=== PATIENT | female | born 1980 | race Caucasian/White ===

== ENCOUNTER 2018-07-09 14:50 | Outpatient (REF) | payer MEDICAID, SELFPAY ==
[2018-07-09 22:12] LABS: HCT 45.9 % (36.0-46.0); HGB 14.9 g/dL (12.0-15.5); Mean Corp. HGB Concentration 32.5 g/dL (32.0-36.0); Mean Corpuscular Hemoglobin 29.3 pg (27.0-33.0); Mean Corpuscular Volume 90.2 fL (80-95); Mean Platelet Volume 10.5 fL (8.0-11.0); Platelet Count 270 x1000/uL (130-400); RBC 5.09 m/cumm (4.00-5.20); RBC Distribution Width 13.8 % (11.7-14.6); White Blood Cell Count 11.39 k/cumm (4.4-10.8)
[2018-07-09 22:22] LABS: ALT 47 U/L (12-78); AST 30 U/L (15-37); Albumin 3.2 g/dL (3.4-5.0); Alkaline Phosphatase 76 U/L (46-116); Anion Gap 7.4 mmol/L (3-11); BUN 11 mg/dL (7-18); Bilirubin, Total 0.2 mg/dL (0.2-1.0); CO2 30.6 mmol/L (21.0-32.0); CREATININE 0.79 mg/dL (0.55-1.02); Calcium 9.1 mg/dL (8.5-10.1); Chloride 104 mmol/L (98-107); Ferritin 104 ng/mL (8-388); Glucose 107 mg/dL (70-100); Magnesium 1.9 mg/dL (1.8-2.4); Potassium 3.9 mmol/L (3.5-5.1); Sodium 142 mmol/L (136-145); TSH (W/Ref FT4) 1.96 uIU/mL (0.358-3.74); Total Protein 6.8 g/dL (6.4-8.2)
[2018-07-12 08:54] LABS: Vitamin D 25 Total 20.7 ng/ml (30-100)
== END 2018-07-09 15:10 ==
LOC: NCHCN 14:50
PROVIDERS: Visit Provider Family Medicine
DX: R14.0 Abdominal distension (gaseous) (principal); G25.81 Restless legs syndrome; R60.9 Edema, unspecified; E55.9 Vitamin D deficiency, unspecified
CPT/HCPCS: 80053; 82306; 85027; 82728; 83735; 84443

== ENCOUNTER 2020-06-22 16:14 | Outpatient (REF) | payer MEDICAID, SELFPAY ==
[2020-06-27 00:51] LABS: SARS-CoV-2 RNA Undetected (Undetected); SARS-CoV-2 Specimen Source Nasal
== END 2020-06-22 16:34 ==
LOC: NCHCN 16:14
PROVIDERS: Visit Provider Family Medicine
DX: R50.9 Fever, unspecified (principal)
CPT/HCPCS: U0003

== ENCOUNTER 2020-08-01 16:37 | Emergency (ER) | payer MEDICAID, SELFPAY ==
[2020-08-01 16:42] VITALS: BP 134/76; PULSE 112; RESP 18; TEMP 36.6; O2SAT 99
--- NOTE | 2020-08-01 16:56 | ED.GENADUL_ITS ---
Discharge Plan Disposition Patient Disposition: HOME Condition: Stable Discharge Details Clinical Impression: Rash, Right rib fracture Primary Care Provider: Danielle Choe ED Provider: Lizzy Bernal Home Meds and New Rx's Prescriptions: New ibuprofen 800 mg tablet 800 mg PO Q8H PRN (Reason: pain) Qty: 20 RF: 0 Continued omeprazole 20 MG capsule,delayed release(DR/EC) 20 mg PO DAILY RF: 0 albuterol sulfate [ProAir HFA] 8.5 GM HFA aerosol inhaler 2 puff Inhalation Q6H PRN PRNRF: 0 fluoxetine 20 MG capsule 20 mg PO QAM RF: 0 cholecalciferol (vitamin D3) 1,000 UNITS tablet 1,000 units PO DAILY RF: 0 Discharge Instructions Instructions: Rib Fracture (ED), Acute Rash (ED) Additional Instructions: It appears that you have broken 2 ribs on the right side #5 and 6. These should heal on their own. Use the triamcinolone cream as directed. If rash worsens you may try an [id number] antifungal cream such as ketoconazole, clomitriazole or similar. Please take Tylenol or Ibuprofen with food every 4-6 hours as needed for pain and swelling. When coughing or sneezing please splint your side with a pillow under your arm. Use incentive spirometer as directed and instructed by staff nurse icu resource team. Return to the ED or be seen sooner for any worsening pain, increased shortness of breath, productive cough or any concerns. Your labs show no indication for tremors. They may be related to the Adderall, or medications you are taking. Speak with your PCP about follow up with neurology if they continue. Referrals: Danielle Choe [Primary Care Provider] - Medical Decision Making 40-year-old female presents to the ED with chief complaint of right rib pain status post fall out of bed approximately 1 week ago. She also reports tremors to her lower extremities and her upper extremities which has been ongoing for a while, additionally she also reports a burning rash to her abdomen which she noticed a couple days ago. She denies pruritus but does report warmth. She denies any nausea vomiting diarrhea, denies any loss of bowel or bladder control, no saddle anesthesia. She denies any recent fever. She does have a past medical history of chronic back pain, anxiety, ADHD. Basic labs ordered including CBC, CMP, urinalysis, urine drug screen and a tick and Lyme panel due to patient's rash and possible neurological symptoms. Labs are largely within normal limits, white blood cells are slightly elevated at 12.44, glucose is 183, urine specimen is contaminated. Urine drug screen shows positive for opiates, tricyclic antidepressants, THC. Tick and Lyme panel is pending at this time. Imaging protocol: XR Right ribs. Views: 2 views. COMPARISON: CR CHEST 2 VIEWS PA,LAT 04/17/2016 12:21 PM FINDINGS: Bones/joints: There are fractures involving the right 5th and 6th ribs, possibly incomplete. No additional fractures noted. Organs: Post cholecystectomy clips noted. Soft tissues: Normal. IMPRESSION: Right-sided rib fractures 5th and 6th ribs. Patient was given triamcinolone cream here in department. Instructed to try [id number] antifungal creams if this was unsuccessful. Discussed x-ray results and labs with patient who verbalized understanding. Discussed home care and strict return instructions, verbalized understanding. Instructed to follow-up with primary care provider regarding tremors if they continue to follow-up with neurology. Incentive spirometry ordered for staff nurse icu resource team to instruct patient on use. Patient remained hemodynamically stable throughout stay and at this time is safe for her to be discharged home. This text was generated using [employer] dictation system, please disregard any oddities of phrase or misspellings. HPI General Mode of arrival: ambulatory . Date/Time Provider Initiated Documentation: 08/01/20 16:39 . Limitations to Documentation: no limitations . Information obtained by: patient . HPI Narrative: 40-year-old female presents to the ED with chief complaint of right rib pain status post fall out of bed approximately 1 week ago. She also reports tremors to her lower extremities and her upper extremities which has been ongoing for a while, additionally she also reports a burning rash to her abdomen which she noticed a couple days ago. She denies pruritus but does report warmth. She denies any nausea vomiting diarrhea, denies any loss of bowel or bladder control, no saddle anesthesia. She denies any recent fever. She does have a past medical history of chronic back pain, anxiety, ADHD. Related Data Home Medications Medication Instructions Recorded Confirmed albuterol sulfate [ProAir HFA] 2 puff INHALATION Q6H PRN PRN 07/14/16 07/16/16 cholecalciferol (vitamin D3) 1,000 units PO DAILY 07/14/16 07/16/16 fluoxetine 20 mg PO QAM 07/14/16 07/16/16 omeprazole 20 mg PO DAILY 07/14/16 07/16/16 ibuprofen 800 mg PO Q8H PRN #20 tab 08/01/20 Previous Rx's Medication Instructions Recorded ibuprofen 800 mg PO Q8H PRN #20 tab 08/01/20 Allergies Allergy/AdvReac Type Severity Reaction Status Date / Time No Known Drug Allergies Allergy Unverified 08/01/20 16:46 General Stated Complaint: GenMedical COLIN: 3 Review of Systems Narrative: Constitutional: Negative for weight loss, alert and oriented, obese body habitus, appears anxious. HEENT: Denies trauma, headaches, blurry vision, nasal discharge, sore throat, trouble swallowing. Chest: Denies chest pain, palpitations, irregular rhythm, hypertension. Reports right sided chest tenderness increased pain with deep breathing. Respiratory: Denies Shortness of breath, cough, hemoptysis. GI: Denies abdominal pain, nausea, vomiting, diarrhea, constipation. : Denies dysuria, hematuria, flank pain, rectal bleeding. Skin: Does have a red burning rash noted to her abdomen. Neuro: Denies dizziness, blurry vision, weakness, syncope, headache or facial numbness. Reports tremors with intention, talking to people them not understanding. Hematologic: Denies easy bruising, intolerance to heat or cold, hair loss. [facility] Medical History (Updated 08/01/20 @ 18:00 by Lizzy Bernal) ADHD Back pain Social History Smoking/Tobacco Use Status: Current every day Tobacco Type: cigarettes Smoking risk assessment performed?: Yes Alcohol Intake: current Alcohol Intake frequency: holidays/special occasions only Drug use: Occasionally Substance use type: marijuana Do you feel safe at home: Yes Do you feel safe in your relationship?: Yes Exam Narrative Exam Narrative: Constitutional: Alert and oriented, pressured speech, appears anxious. Obese body habitus Head: Normocephalic, no trauma. Eyes: Pupils PERRLA, Red reflex noted, EOM's intact. Eyelids symmetrical without lesions, discharge, or swelling. ENT: Bilateral TM's WNL, External ear normal to inspection, no mastoid TTP, swelling, or erythema, Nasal turbinates WNL, no nasal discharge. Normal dentition, Posterior pharynx WNL, no exudate. Chest: Mildly tachycardic, Normal S1, S2, distal pulses intact. Resp: Lungs clear to auscultation bilaterally, no wheezes, rales, or rhonchi. Musculoskeletal: Normal gait, 5/5 strength to all four extremities. Does have right lateral rib tenderness with palpation. Skin: Erythema and warmth noted to abdominal pannus, nonblanchable, not raised, no urticaria. Capillary refill less than 2 sec. Neurologic: Cranial nerves II-XII intact. Alert and oriented x 3. DTR's intact. Does have tremors with intention noted to lower extremities and upper extremities. Hematologic/Lymphatic: No ecchymosis, no lymphadenopathy. Course Vital Signs Vital signs: Vital Signs Temperature 36.6 C 08/01/20 16:42 Pulse 112 H 08/01/20 16:42 Respiratory Rate 18 08/01/20 16:42 Blood Pressure 134/76 08/01/20 16:42 Pulse Oximetry 99 08/01/20 16:42 Temperature 36.6 C 08/01/20 16:42 Temperature Source Skin 08/01/20 16:42 Pulse 112 H 08/01/20 16:42 Respiratory Rate 18 08/01/20 16:42 Respiratory Effort Non-Labored 08/01/20 16:46 Blood Pressure 134/76 08/01/20 16:42 Blood Pressure Position Sitting 08/01/20 16:42 Pulse Oximetry 99 08/01/20 16:42 Oxygen Delivery Method Room Air 08/01/20 16:42 Oxygen Flow Rate 0 08/01/20 16:42 Pain Level 10 08/01/20 16:42
[2020-08-01 17:02] VITALS: RESP 16
[2020-08-01 17:14] LABS: Abs Immature Grans 0.03 10^3/uL (0.0-0.06); Absolute Basophil Count 0.07 10^3/uL (0.0-0.2); Absolute Lymphocyte Count 3.17 10^3/uL (1.2-3.4); Absolute Monocyte Count 0.98 10^3/uL (0.1-0.8); Absolute Neutrophil Count 7.96 10^3/uL (1.2-6.7); Basophils % 0.6; Eosinophils % 1.8; HCT 43.8 % (36.0-46.0); HGB 14.3 g/dL (11.2-15.7); Immature Grans % 0.2; Lymphocytes % 25.5; MCHC 32.6 % (32.0-36.0); MCV 79.5 fL (80-95); MPV 9.1 fL (8.0-11.0); Monocytes % 7.9; Nucleated RBC 0 %; Platelet Count 330 10^3/uL (130-400); RBC 5.51 10^6/uL (3.93-5.22); RDW 13.2 % (11.7-14.6); RDW-SD 37.9 fL; WBC 12.44 10^3/uL (4.4-10.8)
[2020-08-01 17:17] LABS: Bilirubin Small (Negative); Blood Negative (Negative); Clarity Sl Cloudy (Clear); Glucose Negative (Negative); Ketones Negative (Negative); Leukocyte Esterase Trace (Negative); Nitrite Negative (Negative); Specific Gravity >= 1.030 (1.005-1.025)
[2020-08-01 17:17] LABS: Absolute Eosinophil Count 0.22 10^3/uL (0.0-0.7)
[2020-08-01 17:28] LABS: ALT 35 U/L (14-59); AST 23 U/L (15-37); Albumin 3.5 g/dL (3.4-5.0); Alkaline Phosphatase 72 U/L (46-116); Anion Gap 7.4 mmol/L (3-11); BUN 6 mg/dL (7-18); Bilirubin, Total 0.6 mg/dL (0.2-1.0); CO2 27.6 mmol/L (21.0-32.0); CREATININE 0.91 mg/dL (0.55-1.02); Calcium 9.1 mg/dL (8.5-10.1); Chloride 101 mmol/L (98-107); Glucose 183 mg/dL (74-106); Potassium 3.7 mmol/L (3.5-5.1); Sodium 136 mmol/L (136-145); Total Protein 7.8 g/dL (6.4-8.2)
[2020-08-01 17:29] LABS: Bacteria Moderate HPF (Negative); C & S Indicated? No/Sq. Contamination; Casts Negative LPF (Negative); Crystals Negative HPF (Negative); Epithelial Cells Moderate HPF (Negative); Mucus Negative (Negative); RBC 0-2 HPF (0-2)
[2020-08-01 17:34] LABS: *AMPHETAMINES SCREEN URINE Negative (Negative); *BARBITURATES SCREEN URINE Negative (Negative); *BENZODIAZEPINES SCREEN URINE Negative (Negative); Cannabinoids THC POSITIVE (Negative); Cocaine Screen,Urine Negative (Negative); METHADONE URINE SCREEN Negative (Negative); OPIATES URINE SCREEN POSITIVE (Negative)
--- NOTE | 2020-08-01 17:35 | DI.RAD_ITS ---
EXAM: XR RIBS RT W PA LAT CHEST CLINICAL HISTORY: Fall, right rib pain TECHNIQUE: 2D digital imaging was performed. COMPARISON: CR CHEST 2 VIEWS PA,LAT from 04/17/2016 FINDINGS: MEDIASTINUM: Normal. HEART: Normal. PULMONARY VASCULATURE: Normal. LUNGS: Clear. PLEURAL SPACE: No pleural effusion or pneumothorax. BONE:Degenerative changes in the spine. There is kyphosis of the thoracic spine but no compression f ractures appreciated. RIGHT RIBS: Mildly displaced fractures involving the posterolateral aspects of the right 5th and 6th ribs. OTHER FINDINGS:Surgical clips are seen in the right upper quadrant of the abdomen likely reflecting p rior cholecystectomy. IMPRESSION: 1. No acute pulmonary findings. 2. Mildly displaced fractures involving the posterolateral aspects of the right 5th and 6th ribs. No pneumothorax. DATA REPOSITORY: RADIATION DOSE DELIVERED:
[2020-08-01 17:36] LABS: Tricyclic Antidepressants POSITIVE (Negative)
[2020-08-01] MEDS: Triamcinolone 0.1% CR 15 GM TUBE TP (17:47)
--- NOTE | 2020-08-01 17:50 | DI.VRAD_ITS ---
PROCEDURE INFORMATION: Exam: XR Right Ribs Exam date and time: 08/01/2020 4:56 PM Age: 40 years old Clinical indication: Other: Fall, RT rib pain TECHNIQUE: Imaging protocol: XR Right ribs. Views: 2 views. COMPARISON: CR CHEST 2 VIEWS PA,LAT 04/17/2016 12:21 PM FINDINGS: Bones/joints: There are fractures involving the right 5th and 6th ribs, possibly incomplete. No additional fractures noted. Organs: Post cholecystectomy clips noted. Soft tissues: Normal. IMPRESSION: Right-sided rib fractures 5th and 6th ribs. PROCEDURE INFORMATION: Exam: XR Chest, 2 Views Exam date and time: 08/01/2020 4:56 PM Age: 40 years old Clinical indication: Other: Fall, RT rib pain TECHNIQUE: Imaging protocol: XR of the chest Views: 2 views. COMPARISON: CR CHEST 2 VIEWS PA,LAT 04/17/2016 12:21 PM FINDINGS: Lungs: Unremarkable. No consolidation. Pleural space: Unremarkable. No pleural effusion. No pneumothorax. Heart/Mediastinum: Unremarkable. No cardiomegaly. Bones/joints: See Soft tissues finding. Soft tissues: There is some mild increased kyphotic deformity noted in the chest compared on the lateral view to prior exam. No definite compression fracture is appreciated. IMPRESSION: Minimal increase in kyphosis may be positional. Subtle compression deformity not excludable. Dictated and Authenticated by: Carol Smalls MD. Ordering:JAIME Ball MD
[2020-08-01 18:21] VITALS: BP 117/84; PULSE 86; RESP 16; O2SAT 98
[2020-08-05 18:18] LABS: Anaplasma phagocytophilum Negative (Negative); B. miyamotoi PCR Negative (Negative); Babesia divergens/MO-1 Negative (Negative); Babesia duncani Negative (Negative); Babesia microti Negative (Negative); Ehrlichia chaffeensis Negative (Negative); Ehrlichia ewingii/canis Negative (Negative); Ehrlichia muris eauclairensis Negative (Negative)
[2020-08-06 09:58] LABS: Lyme Ab w Rflx to Lyme Confirm Negative (Negative)
== END 2020-08-01 18:20 | disposition home or self-care (01) ==
PROVIDERS: Emergency Provider Registered Nurse Emergency; PCP Family Medicine
DX: S22.41XA Multiple fractures of ribs, right side, initial encounter for closed fracture (principal); W06.XXXA Fall from bed, initial encounter; R21 Rash and other nonspecific skin eruption; R25.1 Tremor, unspecified
CPT/HCPCS: 36415; 80053; 80307; 87798; 99284; 71046; 71100; 81003; 81015; 83735; 85025; 86618

== ENCOUNTER 2020-09-14 19:24 | Outpatient (REF) | payer MEDICAID, SELFPAY ==
[2020-09-14 21:22] LABS: Abs Immature Grans 0.07 10^3/uL (0.0-0.06); Absolute Basophil Count 0.13 10^3/uL (0.0-0.2); Absolute Eosinophil Count 0.47 10^3/uL (0.0-0.7); Absolute Lymphocyte Count 2.96 10^3/uL (1.2-3.4); Absolute Monocyte Count 1.16 10^3/uL (0.1-0.8); Absolute Neutrophil Count 11.57 10^3/uL (1.2-6.7); Basophils % 0.8; Eosinophils % 2.9; HCT 38.1 % (36.0-46.0); Immature Grans % 0.4; Lymphocytes % 18.1; MCH 25.1 pg (27.0-33.0); MCHC 31.5 % (32.0-36.0); MCV 79.7 fL (80-95); Monocytes % 7.1; Neutrophils % 70.7; Nucleated RBC 0 %; Platelet Count 364 10^3/uL (130-400); RBC 4.78 10^6/uL (3.93-5.22); RDW 15.3 % (11.7-14.6); RDW-SD 44.4 fL; WBC 16.36 10^3/uL (4.4-10.8)
[2020-09-14 22:04] LABS: Hemoglobin A1C 6.8 % (<5.7)
[2020-09-14 22:35] LABS: ALT 42 U/L (14-59); AST 24 U/L (15-37); Albumin 3.4 g/dL (3.4-5.0); Alkaline Phosphatase 82 U/L (46-116); Anion Gap 7.4 mmol/L (3-11); BUN 13 mg/dL (7-18); Bilirubin, Total 0.3 mg/dL (0.2-1.0); CO2 28.6 mmol/L (21.0-32.0); CREATININE 0.8 mg/dL (0.55-1.02); Calcium 8.5 mg/dL (8.5-10.1); Calculated LDL 56 mg/dL (<100); Chloride 101 mmol/L (98-107); Cholesterol 108 mg/dL (<200); Glucose 193 mg/dL (74-106); HDL Cholesterol 46 mg/dL (40-60); Magnesium 1.9 mg/dL (1.8-2.4); Potassium 4.1 mmol/L (3.5-5.1); Sodium 137 mmol/L (136-145); Total Protein 7.1 g/dL (6.4-8.2); Triglyceride 34 mg/dL (<150)
[2020-09-14 23:03] LABS: C-Reactive Protein 3.15 mg/dL (0.0-0.3)
[2020-09-17 11:39] LABS: HIV-1/2 Ag & Ab Screen Negative (Negative)
[2020-09-17 13:49] LABS: HCV RNA Qualitative Detected (Undetected)
== END 2020-09-14 19:25 | disposition home or self-care (01) ==
LOC: NCHCN 19:24
PROVIDERS: PCP Family Medicine; Visit Provider Family Medicine
DX: R73.9 Hyperglycemia, unspecified (principal); F11.21 Opioid dependence, in remission; R25.1 Tremor, unspecified; E66.9 Obesity, unspecified
CPT/HCPCS: 80053; 80061; 87389; 87522; 83036; 83735; 84443; 85025; 86140

== ENCOUNTER 2021-04-09 17:29 | Outpatient (REF) | payer MEDICAID, SELFPAY ==
[2021-04-09 21:40] LABS: COMMENT (LAB VIEW ONLY) 159.93 mg/dL; Microalb ug/mg Crea 25.9 ug/mg Cr
== END 2021-04-09 17:30 | disposition home or self-care (01) ==
LOC: NCHCN 17:29
PROVIDERS: PCP Family Medicine; Visit Provider Nurse Practitioner Family
DX: E11.9 Type 2 diabetes mellitus without complications (principal)
CPT/HCPCS: 82043; 82570